=== PATIENT | female | born 1975 | race Caucasian/White ===

== ENCOUNTER 2017-03-05 11:58 | Emergency (ER) | payer OTHER ==
[~2017-03-05] VITALS: Wt 44.0 kg
[2017-03-05] MEDS ORDERED: LORAZEPAM 2 MG INJ IV STA (12:07)
[2017-03-05] MEDS ORDERED: SOD CHLORIDE 0.9% 500 ML IV STA (12:07)
[2017-03-05] MEDS ORDERED: PHENYTOIN 1,000 MG in SOD CHLORIDE 0.9% 80 ML IVPB STA (12:58)
[2017-03-05] MEDS ORDERED: PHENYTOIN 750 MG in SOD CHLORIDE 0.9% 100 ML IVPB STA (13:06)
[2017-03-05] MEDS ORDERED: PHEN100C PO (13:10)
--- NOTE | 2017-03-05 13:14 | ERD ---
ER Documentation Chief Complaint Date/Time DATE: 03/05/17 TIME: 13:11 Chief Complaint possible seizure unwitnessd while in custody. no neuro deficit noted. a&ox3 HPI 41 yo F hx of seizure disorder who presents to ED with possible seizure. Patient reports seizure and recent meth use. Patient has been noncompliant with meds for 1 week. No headache, fever, or chills, No postictal state and no other complaints currently. She is unsure of her dosing regimen. ROS All systems reviewed and are negative except as per history of present illness. Medications Home Meds Active Scripts Phenytoin* Sodium Extended (Dilantin*) 100 Mg Capsule, 100 MG PO TID for 30 Days , CAP Prov:APARNA LABOY MD 03/05/17 Allergies Allergies: Coded Allergies: No Known Allergy (Unverified , 03/05/17) CONFIRMED W/ ER- PT IS NKA PMhx/Soc Hx Alcohol Use: No Hx Substance Use: No Hx Tobacco Use: No Smoking Status: Never smoker FmHx Family History: No diabetes Physical Exam Vitals Vital Signs Date Time Temp Pulse Resp B/P Pulse Ox O2 Delivery O2 Flow Rate FiO2 03/05/17 12:03 98.2 82 21 99/61 98 Physical Exam Const: no acute distress, slightly disheveled. Head: Atraumatic Eyes: Normal Conjunctiva ENT: Normal External Ears, Nose and Mouth. Neck: Full range of motion..~ No meningismus. Resp: Clear to auscultation bilaterally Cardio: Regular rate and rhythm, no murmurs Abd: Soft, non tender, non distended. Normal bowel sounds Skin: No petechiae or rashes Back: No midline or flank tenderness Ext: No cyanosis, or edema Neur: Awake and alert Psych: Normal Mood and Affect Results 24 hrs Laboratory Tests Test 03/05/17 12:00 Phenytoin (Dilantin) Level < 3.0ug/ml Current Medications Medications (Trade) Dose Ordered Sig/Yulissa Route PRN Reason Start Time Stop Time Status Last Admin Dose Admin Sodium Chloride (NS) 500 ml @ 500 mls/hr Q1H STAT IV 03/05/17 12:07 03/05/17 13:06 DC 03/05/17 12:15 Lorazepam 1 mg 1 mg ONCE STAT IV 03/05/17 12:07 03/05/17 12:08 DC 03/05/17 12:15 Phenytoin 1000 mg/ Sodium Chloride 100 ml @ 200 mls/hr ONCE STAT IVPB 03/05/17 12:58 03/05/17 13:27 Cancel Phenytoin/Sodium Chloride (Dilantin/NS) 115 ml @ 230 mls/hr ONCE STAT IVPB 03/05/17 13:06 03/05/17 13:35 Procedures/MDM Patient with subtherapeutic dilating level. Patient well appearing, no e/o intracranial process. No need for ct or labs. ER course: Patient given Ativan. Dilantin load given in the ED. Patient will be started on Dilantin 100mg po tid per protocol and outpatient followup necessary. Discharge: in custody Meds: Dilantin Departure Diagnosis: Primary Impression: Seizure disorder Additional Impression: Subtherapeutic serum dilantin level Condition: Stable Patient Instructions: Seizure, Recurrent [Adult] Referrals: [facility] YOU HAVE RECEIVED A MEDICAL SCREENING EXAM AND THE RESULTS INDICATE THAT YOU DO NOT HAVE A CONDITION THAT REQUIRES URGENT TREATMENT IN THE EMERGENCY DEPARTMENT. FURTHER EVALUATION AND TREATMENT OF YOUR CONDITION CAN WAIT UNTIL YOU ARE SEEN IN YOUR DOCTORS OFFICE WITHIN THE NEXT 1-2 DAYS. IT IS YOUR RESPONSIBILITY TO MAKE AN APPOINTMENT FOR FOLOW-UP CARE. IF YOU HAVE A PRIMARY DOCTOR --you should call your primary doctor and schedule an appointment IF YOU DO NOT HAVE A PRIMARY DOCTOR YOU CAN CALL OUR PHYSICIAN REFERRAL HOTLINE AT IF YOU CAN NOT AFFORD TO SEE A PHYSICIAN YOU CAN CHOSE FROM THE FOLLOWING [facility] [address] [facility]. [facility] [address] [place] [facility] [address] [facility] [facility] [address] [facility] [facility] [address] [facility]. [facility]. [address] [facility]. [facility] YOU HAVE RECEIVED A MEDICAL SCREENING EXAM AND THE RESULTS INDICATE THAT YOU DO NOT HAVE A CONDITION THAT REQUIRES URGENT TREATMENT IN THE EMERGENCY DEPARTMENT. FURTHER EVALUATION AND TREATMENT OF YOUR CONDITION CAN WAIT UNTIL YOU ARE SEEN IN YOUR DOCTORS OFFICE WITHIN THE NEXT 1-2 DAYS. IT IS YOUR RESPONSIBILITY TO MAKE AN APPOINTMENT FOR FOLOW-UP CARE. IF YOU HAVE A PRIMARY DOCTOR --you should call your primary doctor and schedule and appointment IF YOU DO NOT HAVE A PRIMARY DOCTOR YOU CAN CALL OUR PHYSICIAN REFERRAL HOTLINE AT . IF YOU CAN NOT AFFORD TO SEE A PHYSICIAN YOU CAN CHOSE FROM THE FOLLOWING [facility] INSTITUTIONS: [facility] [address] [place] [address] [facility] [address] [place] [address] [facility] [address] [place] [address] Additional Instructions: Call your primary care doctor TOMORROW for an appointment during the next 1 WEEK.Tell the junior legal secretary that you were referred from this facility.See the doctor sooner or return here if your condition worsens before your appointment time. OK TO BOOK APARNA LABOY MD Mar 05, 2017 13:14
[2017-03-05 13:47] VITALS: BP 108/77; PULSE 96; RESP 18; TEMP 98
== END 2017-03-05 13:59 ==
LOC: E/R 11:58
DX: G40.509 Epileptic seizures related to external causes, not intractable, without status epilepticus (principal); R40.2142 Coma scale, eyes open, spontaneous, at arrival to emergency department; R40.2252 Coma scale, best verbal response, oriented, at arrival to emergency department; R40.2362 Coma scale, best motor response, obeys commands, at arrival to emergency department
CPT/HCPCS: 80185; J1165; J2060; J7040; 36415; 96374; 96375